=== PATIENT | female | born 1980 | race Caucasian/White ===

== ENCOUNTER 2024-02-20 12:50 | Emergency (ER) | payer OTHER, SELFPAY ==
[2024-02-20 13:00] VITALS: BP 128/80; PULSE 99; RESP 20; TEMP 36.8; O2SAT 100; BMI 32.9
[2024-02-20 13:45] LABS: Influenza Virus A Antigen Negative; Influenza Virus B Antigen Negative; Internal Control Within Normal Limits; SARS-CoV-2 Ag NEGATIVE (NEGATIVE); Strep A Antigen Screen Positive
--- NOTE | 2024-02-20 13:55 | ED.URI1 ---
HPI - URI/Sore Throat General Chief Complaint: Upper Respiratory Infection Stated Complaint: FLU LIKE SYMPTOMS Time Seen by Provider: 02/20/24 13:13 Source: patient Limitations: no limitations History of Present Illness HPI Narrative: Patient is a 43-year-old female who presents to the emergency department for 2-day history of sore throat, hoarse voice, fevers, body aches, cough and congestion. She is not concerned for . No medications taken prior to arrival, she arrives afebrile. She has not had any vomiting or diarrhea. Her daughter is also being evaluated for the same. Related Data Previous Rx's ?Medication ?Instructions ?Recorded amoxicillin 500 mg capsule 500 mg PO TID 10 days #30 caps 02/20/24 ccbxhjsxfwzratm-lfurdjvuakbefns-SB 10 ml PO Q6H PRN cold symptoms 02/20/24 2 mg-30 mg-10 mg/5 mL oral syrup #200 mL (Bromfed DM) ondansetron 4 mg disintegrating 4 mg PO Q6H PRN nausea and 02/20/24 tablet vomiting #12 tabs Allergies Allergy/AdvReac Type Severity Reaction Status Date / Time No Known Drug Allergies Allergy Verified 02/20/24 12:59 Review of Systems ROS Constitutional Reports: fever Ears, nose, mouth, and throat Reports: throat pain and nasal congestion Cardiovascular Denies: chest pain Respiratory Reports: cough; Denies: shortness of breath Gastrointestinal Denies: nausea, vomiting or diarrhea Integumentary/Breast Denies: rash Neurological Reports: headache Exam Narrative Exam Narrative: Gen.: Awake, alert, in no distress Head: Normocephalic, atraumatic ENT: Moist mucous membranes, No pharyngeal erythema with uvula midline and airway widely open and patent. Normal clear speech. Bilateral TMs clear Respiratory: No respiratory distress, lungs clear bilaterally Cardio: Regular rate and rhythm Extremities: Moves extremities equally Psych: Normal mood and affect Neuro: No focal neuro deficit Skin: Warm, dry, intact Constitutional Vital Signs, click to edit/add: Last Vital Signs Temp 98.2 F 02/20/24 13:00 Pulse 99 H 02/20/24 13:00 Resp 20 02/20/24 13:00 BP 128/80 02/20/24 13:00 Pulse Ox 98 02/20/24 14:21 O2 Del Method Room Air 02/20/24 14:21 Course Vital Signs Vital signs: Vital Signs Temperature 98.2 F 02/20/24 13:00 Pulse Rate 99 H 02/20/24 13:00 Respiratory Rate 20 02/20/24 13:00 Blood Pressure 128/80 02/20/24 13:00 Pulse Oximetry 100 02/20/24 13:00 Oxygen Delivery Method Room Air 02/20/24 13:00 Temperature 98.2 F 02/20/24 13:00 Pulse Rate 99 H 02/20/24 13:00 Respiratory Rate 20 02/20/24 13:00 Blood Pressure 128/80 02/20/24 13:00 Pulse Oximetry 98 02/20/24 14:21 Oxygen Delivery Method Room Air 02/20/24 14:21 MDM - URI/Sore Throat MDM Narrative Medical decision making narrative: Patient is positive for strep, her daughter is positive for influenza A so she was counseled that she likely has both infections. Amoxicillin, Bromfed-DM and Zofran given for home. Follow-up PCP and return to the ER if symptoms change or worsen Medical Records Attestation: I reviewed the patient's medical records. Lab Data Attestation: I reviewed the patient's lab results. Labs: Lab Results 02/20/24 Range/Units 13:10 Influenza Type A Ag Negative Influenza Type B Ag Negative SARS-CoV-2 Ag (CV2AG) Negative (NEGATIVE) Streptococcus Screen Positive A Discharge Plan Discharge Stand Alone Forms: Portal Instructions Chief Complaint: Upper Respiratory Infection Clinical Impression: Acute streptococcal pharyngitis Patient Disposition: Home, Self-Care Time of Disposition Decision: 13:53 Condition: Good Mode of Transportation: Private Vehicle Prescriptions / Home Meds: New amoxicillin 500 mg capsule 500 mg PO TID 10 Days Qty: 30 0RF erlvfrrcwdnzrwp-xyqxndjdw-JX [Bromfed DM] 2-30-10 mg/5 mL syrup 10 ml PO Q6H PRN (Reason: cold symptoms) Qty: 200 0RF ondansetron 4 mg tablet,disintegrating 4 mg PO Q6H PRN (Reason: nausea and vomiting) Qty: 12 0RF Print Language: Hungarian Instructions: Strep Throat (ED) Referrals: [facility] [Primary Care Provider] - 1 week Discharge Date/Time: 02/20/24 14:23
[2024-02-20 14:21] VITALS: O2SAT 98
--- NOTE | 2024-02-20 14:21 | PC.NURSE ---
swabs were obtained upon arrival
== END 2024-02-20 14:23 | disposition home or self-care (01) ==
PROVIDERS: Physician Assistant; Emergency Provider Emergency Medicine Emergency Medical Services
DX: J02.0 Streptococcal pharyngitis (principal); Z20.822 Contact with and (suspected) exposure to COVID-19
CPT/HCPCS: 87804; 87811; 87880; 99283

== ENCOUNTER 2025-06-06 14:17 | Emergency (ER) | payer OTHER, SELFPAY ==
[2025-06-06 14:28] VITALS: BP 122/83; PULSE 88; TEMP 36.8; O2SAT 98; BMI 35.0
--- NOTE | 2025-06-06 14:35 | XR_ITS ---
The [place] [address] Patient Name: YENY AVILES MRN: [id number] date: 1980 Sex: F Assigned Patient Location: ER Current Patient Location: ER Accession/Order Number: [id number] Exam Date: 06/06/2025 15:23 Report Date: 06/06/2025 15:27 At the request of: SCOTT MCBRIDE MD Procedure: XR ankle LT min 3V XR foot LT min 3V, XR ankle LT min 3V 06/06/2025 2:59 PM SIGNS AND SYMPTOMS: Left ankle pain and left foot pain, twisting injury to left ankle PROTOCOL: Frontal, lateral, and oblique radiographs of the left foot and left ankle COMPARISON: None FINDINGS: Left foot: There is an os navicularis along the medial margin of the midfoot which is a normal variant. There is a minimally displaced fracture along the anterior and dorsal surface of the navicular. No additional fractures are noted. The joint spaces are preserved. Left ankle: The ankle mortise is preserved. There is a minimally displaced fracture of the navicular. No additional fractures are noted. There is mild nonspecific soft tissue swelling diffusely. XR/XR foot LT min 3V IMPRESSION: Left foot: There is a minimally displaced fracture along the anterior and dorsal surface of the navicular. Left ankle: There is a minimally displaced fracture along the anterior and dorsal surface of the navicular. Impression dictated by: Ranjan Newby M.D. 06/06/2025 3:27 PM Dictation Location: [place] [address] Electronically authenticated by: [id number] Y Date: 06/06/2025 15:27
--- NOTE | 2025-06-06 14:35 | XR_ITS ---
The [place] [address] Patient Name: YENY AVILES MRN: [id number] date: 1980 Sex: F Assigned Patient Location: ER Current Patient Location: ER Accession/Order Number: [id number] Exam Date: 06/06/2025 15:23 Report Date: 06/06/2025 15:27 At the request of: SCOTT MCBRIDE MD Procedure: XR ankle LT min 3V XR foot LT min 3V, XR ankle LT min 3V 06/06/2025 2:59 PM SIGNS AND SYMPTOMS: Left ankle pain and left foot pain, twisting injury to left ankle PROTOCOL: Frontal, lateral, and oblique radiographs of the left foot and left ankle COMPARISON: None FINDINGS: Left foot: There is an os navicularis along the medial margin of the midfoot which is a normal variant. There is a minimally displaced fracture along the anterior and dorsal surface of the navicular. No additional fractures are noted. The joint spaces are preserved. Left ankle: The ankle mortise is preserved. There is a minimally displaced fracture of the navicular. No additional fractures are noted. There is mild nonspecific soft tissue swelling diffusely. XR/XR ankle LT min 3V IMPRESSION: Left foot: There is a minimally displaced fracture along the anterior and dorsal surface of the navicular. Left ankle: There is a minimally displaced fracture along the anterior and dorsal surface of the navicular. Impression dictated by: Ranjan Newby M.D. 06/06/2025 3:27 PM Dictation Location: [place] [address] Electronically authenticated by: [id number] Y Date: 06/06/2025 15:27
--- NOTE | 2025-06-06 14:35 | PC.NURSE ---
left ankle swelling to outside ankle. foot placed on pillows and ice pack in place
[2025-06-06] MEDS: KETOROLAC TROMETHAMINE 60 MG/2 ML VIAL IM (14:44)
--- NOTE | 2025-06-06 15:48 | CT_ITS ---
The [address] [address] Patient Name: YENY AVILES MRN: [id number] date: 1980 Sex: F Assigned Patient Location: ER Current Patient Location: ER Accession/Order Number: [id number] Exam Date: 06/06/2025 16:53 Report Date: 06/06/2025 16:57 At the request of: SCOTT MCBRIDE MD Procedure: CT foot LT wo con CT foot LT wo con 06/06/2025 4:23 PM SIGNS AND SYMPTOMS: ^ankle and foot pain , navicular fx TECHNIQUE: Multidetector CT axial slices of the left foot without IV contrast. Multiplanar reformats were performed and viewed on a separate workstation and reviewed to further define anatomy and possible pathology. CT was performed with one or more of the following dose reduction techniques: Automated exposure control, adjustment of the mA and/or kV according to patient size, or use of iterative reconstruction technique. COMPARISON: Radiographs from the same date. FINDINGS: There is a minimally displaced fracture along the anterior and volar surface of the navicular similar to that seen on radiographs. There is mild accompanying soft tissue swelling. Minimally displaced fractures are also noted along the anterior process of the calcaneus and along the lateral margin of the lateral cuneiform. The metatarsals are intact. The talus is intact. The medial and lateral malleolus are intact. There is a small os navicularis along the lateral margin of the midfoot which is a normal variant. CT/CT foot LT wo con IMPRESSION: There is a minimally displaced fracture along the anterior and volar surface of the navicular similar to that seen on radiographs. There is mild accompanying soft tissue swelling. Minimally displaced fractures are also noted along the anterior process of the calcaneus and along the lateral margin of the lateral cuneiform. Impression dictated by: Ranjan Newby M.D. 06/06/2025 4:57 PM Dictation Location: [place] [address] Electronically authenticated by: [id number] Y Date: 06/06/2025 16:57
--- NOTE | 2025-06-07 07:34 | ED_ITS ---
HPI HPI - Extremity Injury (Lower) General Chief Complaint: Extremity Injury, Lower Stated Complaint: left foot pain Time Seen by Provider: 06/06/25 14:29 Source: patient Mode of arrival: Wheelchair History of Present Illness HPI Narrative: The patient is complaining of severe left ankle and foot pain that started after she fell while going downstairs after missing the last step, patient denies any other complaint but she mentioned that she felt the pop in her foot when she fell down There is no obvious deformity but there is edema of the left foot Related Data Previous Rx's ?Medication ?Instructions ?Recorded amoxicillin 500 mg capsule 500 mg PO TID 10 days #30 c aps 02/20/24 exqnbkoeqqwovti-uvdwnsvpuivwvxq-YR 10 ml PO Q6H PRN co ld symptoms 02/20/24 2 mg-30 mg-10 mg/5 mL oral syrup #200 mL (Bromfed DM) ondansetron 4 mg disintegrating 4 mg PO Q6H PRN nausea and 02/20/24 tablet vomiting #12 tabs acetaminophen 650 mg 650 mg PO Q8H PRN pain #20 t abs 06/06/25 tablet,extended release (Tylenol 8 Hour) diclofenac sodium 75 mg 75 mg PO BID PRN pain #20 ta bs 06/06/25 tablet,delayed release tramadol 50 mg tablet 50 mg PO BID PRN pain #6 tab s 06/06/25 Allergies Allergy/AdvReac Type Severity Reaction Status Date / Time No Known Drug Allergies Allergy Verified 02/20/24 12:59 Opioid HPI Opioid Management Most Recent Pain and Opioid Data: Last Pain Scale 4 06/06/25, 15:00 Last ED Pain Assessment 06/06/25, 15:00 Last MAR Pain Assessment 06/06/25, 14:44 Review of Systems ROS Status of ROS 10 or more systems reviewed and unremark able except as noted in history and below PFSH PFSH Social History Little interest or pleasure in doing things: not at all Feeling down, depressed, or hopeless: not at all Exam Narrative Exam Narrative: Exam Narrative: Nurses notes and vital signs reviewed and patient is not hypoxic. General: Well-appearing and in no apparent distress. Skin: Warm, dry, no pallor noted. Left lower extremity exam: The patient have tenderness upon palpation of the anterior of the foot as well as the ankle there is significant swelling there is no vascular injury detected and the patient have normal capillary fill and there is still full range of movement No apparent deformity and no other injury detected on exam Constitutional Vital Signs, click to edit/add: Last Vital Signs Temp 98.2 F 06/06/25 14:28 Pulse 88 06/06/25 14:28 Resp 18 06/06/25 14:28 BP 122/83 06/06/25 14:28 Pulse Ox 98 06/06/25 14:28 O2 Del Method Room Air 06/06/25 14:28 Course Vital Signs Vital signs: Vital Signs Temperature 98.2 F 06/06/25 14:28 Pulse Rate 88 06/06/25 14:28 Respiratory Rate 18 06/06/25 14:28 Blood Pressure 122/83 06/06/25 14:28 Pulse Oximetry 98 06/06/25 14:28 Oxygen Delivery Method Room Air 06/06/25 14:28 Temperature 98.2 F 06/06/25 14:28 Pulse Rate 88 06/06/25 14:28 Respiratory Rate 18 06/06/25 14:28 Blood Pressure 122/83 06/06/25 14:28 Pulse Oximetry 98 06/06/25 14:28 Oxygen Delivery Method Room Air 06/06/25 14:28 MDM - Extremity Injury (Lower) MDM Narrative Medical decision making narrative: Medical decision making narrative: X-ray of the patient's left foot and ankle showed that the patient had navicular fracture that was discussed with Dr. Allred and he recommended the patient to get a CT Which confirmed that the patient have a fracture of the navicular as well as possibly the calcaneus Patient was provided with crutches and she is stable placed in a cam boot in addition to provided with crutches nonweightbearing and follow-up with Dr. Allred on Sunday The patient also provided with Tylenol and Voltaren and tramadol for pain Patient initially did not want any pain medication but she was provided with only few tablets of pain medication in case needed The patient is to follow up with primary care physician in next 2-3 days or to return to the emergency department should any of the signs or symptoms worsen or new symptoms develop. The patient agrees with the following Diagnosis and Treatment plan and the patient will be discharged home Discharge Plan Discharge Chief Complaint: Extremity Injury, Lower Clinical Impression: Foot fracture Patient Disposition: Home, Self-Care Time of Disposition Decision: 17:13 Condition: Good Prescriptions / Home Meds: New tramadol 50 mg tablet 50 mg PO BID PRN (Reason: pain) Qty: 6 0RF acetaminophen [Tylenol 8 Hour] 650 mg tablet extended release 650 mg PO Q8H PRN (Reason: pain) Qty: 20 0RF diclofenac sodium 75 mg tablet,delayed release (DR/EC) 75 mg PO BID PRN (Reason: pain) Qty: 20 0RF No Action amoxicillin 500 mg capsule 500 mg PO TID 10 Days Qty: 30 0RF bgntkotonxrkhrz-iingwgqxb-NG [Bromfed DM] 2-30-10 mg/5 mL syrup 10 ml PO Q6H PRN (Reason: cold symptoms) Qty: 200 0RF ondansetron 4 mg tablet,disintegrating 4 mg PO Q6H PRN (Reason: nausea and vomiting) Qty: 12 0RF Print Language: Samoan Instructions: Crutch Instructions (ED), Foot Fracture in Adults (ED) Referrals: [facility] [Primary Care Provider] - 1 week Chato Allred MD [Physician, Orthopedics] - 06/08/25 Discharge Date/Time: 06/06/25 17:36
== END 2025-06-06 17:36 | disposition home or self-care (01) ==
PROVIDERS: Emergency Provider Emergency Medicine
DX: S92.252A Displaced fracture of navicular [scaphoid] of left foot, initial encounter for closed fracture (principal); S92.022A Displaced fracture of anterior process of left calcaneus, initial encounter for closed fracture; W10.8XXA Fall (on) (from) other stairs and steps, initial encounter; M25.572 Pain in left ankle and joints of left foot; M79.672 Pain in left foot
CPT/HCPCS: 73610; 73630; 73700; 96372; 99285; J1885

== ENCOUNTER 2025-11-15 13:56 | Emergency (ER) | payer OTHER, SELFPAY ==
--- OUTSIDE RECORDS SUMMARY | 2024-06-18 08:30 | XMS_ITS ---
Author Organization [facility] Servic es Address [address] [place] [address] Care Team Providers Care Blueprint Tracer Name Role Phone Kan Romo Primary Care Provider [phone] REASON FOR VISIT recheck Encounters Encounter Location Date Provider Diagnosis [facility] [address] [place] [address] 06/18/2024 Kan Romo Plan Of Treatment No Information Progress Notes * JG AVILESYDOB: 0 (45 yo F)Acc No.[id number]:06/18/2024 Progress Notes Patient: YENY COLBERT Provider:KARTIK FranzOB:1980???Age:43 Y???Sex:FemaleDate:06/18/2024hone:[phone]:[address] [facility] [address] [facility] [place]-[address] Subjective: * Chief Complaints: * R echeck Billing Information: * Procedure Codes: * Electronic signature of Kan Romo MD on 11/15/2025 at 02:30 PM ESTSign off status: Pending * Appointment Provider: Vee Romo MD Date: 0 06/18/2024 Generated for Printing/Faxing/eTransmitting on:?11/15/2025 02:30 PM EST
--- OUTSIDE RECORDS SUMMARY | 2024-06-25 08:30 | XMS_ITS ---
Author Organization [facility] Servic es Address [address] [place] [address] Care Team Providers Care Campground Caretaker Name Role Phone Kan Romo Primary Care Provider [phone] Luba Garibay [phone] REASON FOR VISIT 1 month f/u Encounters Encounter Location Date Provider Diagnosis [place] [address] [place] [address] 06/25/2024 Luba Garibay Plan Of Treatment No Information Progress Notes * ANYI AVILESOB: 0 (45 yo F)Acc No.[id number]:06/25/2024 Behavioral Health Patient: YENY COLBERT :?Luba GaribayDOB:1980???Age:44 Y???Sex:Female Date:06/25/2024hone:[phone]:[facility] [address] [place], [place]-[id number]:Kan Romo Subjective: * Chief Complaints: * 1 month f/u Billing Information: * Procedure Codes: * Electronic signature of SUSSY العلي on 11/15/2025 at 02:30 PM ESTSign off status: Pending * Provider: Lux Garibay Date: 0 06/25/2024 Generated for Printing/Faxing/eTransmitting on:?11/15/2025 02:30 PM EST
--- OUTSIDE RECORDS SUMMARY | 2024-08-05 03:00 | XMS_ITS ---
Author Organization [facility] Servic es Address [address] [place] [address] Care Team Providers Care Facilities Maintenance Engineer Name Role Phone Kan Romo Primary Care Provider REASON FOR VISIT chronic care f/u Encounters Encounter Location Date Provider Diagnosis [facility] [address] [place] [address] 08/05/2024 Kan Romo Plan Of Treatment No Information Progress Notes * ANYI AVILESOB: 0 (45 yo F)Acc No.[id number]:08/05/2024 Progress Notes Patient: YENY COLBERT Provider:KARTIK FranzOB:1980???Age:44 Y???Sex:FemaleDate:4Phone:[phone]:[facility] [address] [facility] H[facility]ITALHW-[address] Subjective: * Chief Complaints: * C hronic care f/u Billing Information: * Procedure Codes: * Electronic signature of Kan Romo MD on 11/15/2025 at 02:30 PM ESTSign off status: Pending * Appointment Provider: Vee Romo MD Date: 0 08/05/2024 Generated for Printing/Faxing/eTransmitting on:?11/15/2025 02:30 PM EST
--- OUTSIDE RECORDS SUMMARY | 2024-09-22 04:00 | XMS_ITS ---
Author Organization [facility] Servic es Address [address] [place] [address] Care Team Providers Care Harbormaster Name Role Phone Kan Romo Primary Care Provider Ranjan Nair [phone] REASON FOR VISIT chronic care f/u Encounters Encounter Location Date Provider Diagnosis [facility] [address] [place] [address] 09/22/2024 Ranjan Nair Plan Of Treatment No Information Progress Notes * ANYI AVILESOB: 0 (45 yo F)Acc No.[id number]:09/22/2024 Progress Notes Patient: YENY COLBERT Provider:?KARTIK RiojasOB:1980???Age:44 Y???Sex:FemaleDate:09/22/2024hone:[phone]:[address] [facility] [address] HEALTHYT-[address]Wtu:Kan Romo Subjective: * Chief Complaints: * C hronic care f/u Billing Information: * Procedure Codes: * Electronic signature of Ranjan Nair MD on 11/15/2025 at 02:30 PM ESTSign off status: Pending * Appointment Provider: Valdo Nair MD Date: 1 Generated for Printing/Faxing/eTransmitting on:?11/15/2025 02:30 PM EST
--- OUTSIDE RECORDS SUMMARY | 2025-09-29 03:41 | XMS_ITS | Continuity of Care Document ---
Author Organization [facility] Address [address] [place] [address] Phone Care Team Providers Care Imaging Services Director Name Role Phone Eric CNP WHDoreen EVANSan Unavailable Unavaila ble Allergies, Adverse Reactions, Alerts Substance Reaction Status Criticality No Known Allergies Active No Inform ation Medications Medication Instructions Dosage Effective Dates (start - stop) Status Comments Adipex-P 37.5 mg tablet take 1 tablet by oral route every day before breakfast - Active gabapentin 400 mg capsule take 1 capsule by oral route 3 times every day 400 MG - Active Problems Condition Type Effective Dates (start - stop) Clini dax Status Comments No Known Problems Procedures Procedure Date PREV VISIT, EST, AGE 40-64 Bp scrn perf rec interval DIAST BP < 80 MM HG SYST BP < 130 MM HG MED LIST DOCD [facility] RVW MEDS BY RX/DR [facility] Tobacco User Not Consuled Depo Provera 1 Ml Depo Provera 1 Ml OFFICE/OUTPATIENT VISIT, EST Depo Provera 1 Ml OFFICE/OUTPATIENT VISIT, EST Depo Provera 1 Ml OFFICE/OUTPATIENT VISIT, EST THER/PROPH/DIAG INJ, SC/IM Depo Provera 1 Ml PREV VISIT, EST, AGE 40-64 THER/PROPH/DIAG INJ, SC/IM Depo Provera 1 Ml OFFICE/OUTPATIENT VISIT, EST Depo Provera 1 Ml OFFICE/OUTPATIENT VISIT, EST Depo Provera 1 Ml OFFICE/OUTPATIENT VISIT, EST OFFICE/OUTPATIENT VISIT, EST IMMUNIZATION ADMIN FLU VAC NO PRSV 4 DANIEL 3 YRS+ Depo Provera 1 Ml THER/PROPH/DIAG INJ, SC/IM OFFICE/OUTPATIENT VISIT, EST URINE TEST Depo Provera 1 Ml THER/PROPH/DIAG INJ, SC/IM ENDOCERV CURETTAGE W/SCOPE Depo Provera 1 Ml OFFICE/OUTPATIENT VISIT, EST THER/PROPH/DIAG INJ, SC/IM PREV VISIT, EST, AGE 40-64 Depo Provera 1 Ml THER/PROPH/DIAG INJ, SC/IM OFFICE/OUTPATIENT VISIT, EST OFFICE/OUTPATIENT VISIT, EST OFFICE/OUTPATIENT VISIT, EST THER/PROPH/DIAG INJ, SC/IM Depo Provera 1 Ml PREV VISIT, EST, AGE 40-64 URINE TEST Depo Provera 1 Ml THER/PROPH/DIAG INJ, SC/IM Office Visit/[facility] OFFICE/OUTPATIENT VISIT, EST Depo Provera 1 Ml OFFICE/OUTPATIENT VISIT, EST THER/PROPH/DIAG INJ, SC/IM OFFICE/OUTPATIENT VISIT, EST Depo Provera 1 Ml OFFICE/OUTPATIENT VISIT, EST THER/PROPH/DIAG INJ, SC/IM Office Visit/[facility] Depo Provera 1 Ml OFFICE/OUTPATIENT VISIT, EST THER/PROPH/DIAG INJ, SC/IM URINE TEST Depo Provera 1 Ml PREV VISIT, EST, AGE 18-39 THER/PROPH/DIAG INJ, SC/IM Office Visit/[facility] OFFICE/OUTPATIENT VISIT, EST OFFICE/OUTPATIENT VISIT, EST OFFICE/OUTPATIENT VISIT, EST URINE TEST PREV VISIT, EST, AGE 18-39 Depo Provera 1 Ml OFFICE/OUTPATIENT VISIT, EST OFFICE/OUTPATIENT VISIT, EST OFFICE/OUTPATIENT VISIT, EST URINALYSIS NONAUTO W/O SCOPE ROUTINE VENIPUNCTURE OFFICE/OUTPATIENT VISIT, EST OFFICE/OUTPATIENT VISIT, EST URINE TEST URINALYSIS NONAUTO W/O SCOPE PREV VISIT, EST, AGE 18-39 PREV VISIT, EST, AGE 18-39 Depo Provera 1 Ml THIN PREP TIS LIQUID-BASED Chlamydia/Neisseria Gonorrhoeae RNA TMA URINE TEST Depo Provera 1 Ml [facility] SPECIMEN HANDLING (GC/CHLAMYDIA) Aug EST FP MEDICAID OFFICE/OUTPATIENT VISIT, EST OFFICE/OUTPATIENT VISIT, EST Thin Prep(R) Imaging System Pap W/Reflex To HR HPV DNA CHLAMYDIA & N GONORRHOEAE DNA, SDA Feb- OFFICE/OUTPATIENT VISIT, EST Medroxyprogesterone Acetate 150 mg injec tion OFFICE/OUTPATIENT VISIT, EST Medroxyprogesterone Acetate 150 mg injec tion BX/CURETT OF CERVIX W/SCOPE BIOPSY OF CERVIX W/SCOPE OFFICE/OUTPATIENT VISIT, EST Medroxyprogesterone Acetate 150 mg injec tion PREV VISIT, EST, AGE 18-39 Medroxyprogesterone Acetate 150 mg injec tion URINE TEST Thin Prep(R) Imaging System Pap W/Reflex To HR HPV DNA OFFICE/OUTPATIENT VISIT, EST Medrxyprogester acetate inj OFFICE/OUTPATIENT VISIT, EST Medrxyprogester acetate inj OFFICE/OUTPATIENT VISIT, EST Medrxyprogester acetate inj [facility] MEDICAID Medrxyprogester acetate inj OFFICE/OUTPATIENT VISIT, EST Medroxyprogesterone Acetate 104 mg injec tion OFFICE/OUTPATIENT VISIT, EST Medroxyprogesterone Acetate 104 mg injec tion OFFICE/OUTPATIENT VISIT, EST Medrxyprogester acetate inj URINE TEST OFFICE/OUTPATIENT VISIT, EST URINE TEST OFFICE/OUTPATIENT VISIT, EST URINE TEST Medrxyprogester acetate inj [facility] MEDICAID SMEAR, WET [place], SALINE/INK SPECIMEN HANDLING URINE TEST Advance Directives Directive Yes / No Effective Date File Name No Information Encounters Encounter Description Practice Location Reason(s) For Visit Diagnoses Date Provider Providers Copied on Encounter [facility], [address] [place] [address], [place], [place], [id number] , [place] tel:[phone] [facility] No Information [facility] Ophelia. [address], [place], [id number], [place]. tel:[phone] PREV VISIT, [facility], AGE 40-64 [facility], [address] [place] [address], [id number] , [place] tel:[phone] [facility] annual exam (chief complaint) Encounter for gynecological examination (general) (routine) without abnormal findingsBody mass index [BMI] 32.0-32.9, adultScreening mammogram for breast cancerMenorrha sarah with regular cycleDepo Provera injectionPregn maría test negativeColon Cancer screeningDysme norrhea 5 [facility] Ophelia. [address], [place], [id number], [place]. tel:[phone] OFFICE/OUTPA TIENT VISIT, [facility], [address] [place] [address], [id number] , [place] tel: [phone] [facility] Depo (chief complaint) Body mass index [BMI] 33.0-33.9, adultEncounter for surveillance of injectable contraceptive 4 [facility] Ophelia. [address], [place], [id number], [place]. tel:[phone] OFFICE/OUTPA TIENT VISIT, [facility], [address] [place] [address], [id number] , [place] tel: [phone] [facility] abnormal pap smear (chief complaint) Body mass index [BMI] 32.0-32.9, adultDepo Provera injectionASCUS on pap smear of cervixHPV high risk 4 [facility] Ophelia. [address], [place], [id number], [place]. tel:[phone] OFFICE/OUTPA TIENT VISIT, [facility], [address] [place] [address], [id number] , [place] tel:[phone] [facility] contraception (chief complaint) Body mass index [BMI] 34.0-34.9, adultDepo Provera injectionLipom a of right lower extremity 4 [facility] Ophelia. [address], [place], [id number], [place]. tel:[phone] PREV VISIT, [facility], AGE 40-64 [facility], [address] [place] [address], [id number] , [place] tel: [phone] [facility] annual exam (chief complaint)cont raception (chief complaint) Encounter for gynecological examination (general) (routine) without abnormal findingsBreast cancer screening by mammogramBody mass index [BMI] 34.0-34.9, adultDepo Provera injection- STD High risk heterosexual behaviorScreen for STD (sexually transmitted disease) 3 [facility] Ophelia. [address] [place] [address], [id number], [place]. tel:[phone] OFFICE/OUTPA TIENT VISIT, [facility], [address] [place] [address], [id number] , [place] tel:[phone] [facility] contraception (chief complaint) Depo Provera injection 3 [facility] Op[facility]ia. [address], [place], [id number], [place]. tel:[phone] OFFICE/OUTPA TIENT VISIT, [facility], [address] [place] [address], [id number] , [place] tel:[phone] [facility] contraception (chief complaint) Body mass index [BMI] 32.0-32.9, adultDepo Provera injection 3 [facility] Ophelia. [address] [place] [address], [id number], [place]. tel:[phone] OFFICE/OUTPA TIENT VISIT, [facility], [address] [place] [address], [id number] , [place] tel: [phone] [facility] contraception (chief complaint) Body mass index [BMI] 32.0-32.9, adultDepo Provera injection 3 [facility] Ophelia. [address], [place], [id number], [place]. tel:[phone] OFFICE/OUTPA TIENT VISIT, [facility], [address], [place], [id number] , [place] tel:[phone] [facility] contraception (chief complaint) Depo Provera injection 3 [facility] Ophelia. [address], [place], [id number], [place]. tel:[phone] OFFICE/OUTPA TIENT VISIT, [facility], [address] [place] [address], [id number] , [place] tel:[phone] [facility] abnormal pap smear (chief complaint) Chlamydia infectionPap smear of cervix shows high risk HPV presentBody mass index [BMI] 35.0-35.9, adultScreen for STD (sexually transmitted disease)- STD liefstyle codeDepo Provera injectionEncou nter for test, result negative 2 [facility] [address] [place] [address], [id number], [place]. tel:[phone] [facility], [address] [place] [address], [id number] , [place] tel:[phone] [facility] Colpo (chief complaint)abno rmal pap smear (chief complaint)WENDY (chief complaint) Body mass index [BMI] 34.0-34.9, adultPap smear of cervix shows high risk HPV presentTrichom onal vaginitis 2 Deontei DO Deangelo. [address], [place], [id number], [place]. tel:[phone] OFFICE/OUTPA TIENT VISIT, [facility], [address] [place] [address], [id number] , [place] tel:[phone] [facility] contraception (chief complaint) Body mass index [BMI] 34.0-34.9, adultDepo Provera injection 2 [facility]ia. [address], [place], [id number], [place]. tel:[phone] PREV VISIT, [facility], AGE 40-64 [facility], [address] [place] [address], [id number] , [place] tel: [phone] [facility] annual exam (chief complaint) Encounter for gynecological examination (general) (routine) without abnormal findingsScreen ing mammogram, encounter for- STD liefstyle codeScreen for STD (sexually transmitted disease)Depo Provera injectionBody mass index [BMI] 34.0-34.9, adult 2 [facility] Op[facility]ia. [address] [place] [address], [id number], [place]. tel:[phone] OFFICE/OUTPA TIENT VISIT, [facility], [address] [place] [address], [id number] , [place] tel: [phone] [facility] Review labs and x-rays (chief complaint)Musc uloskeletal pain (chief complaint) Body mass index [BMI] 35.0-35.9, adultChronic bilateral low back pain with left-sided sciaticaOther chronic pain 1 Pavlock DO Max. [address] [place] [address], [id number], [place]. tel:[phone] OFFICE/OUTPA TIENT VISIT, [facility], [address] [place] [address], [id number] , [place] tel: [phone] [facility] Weight gain/thyroid (chief complaint) Body mass index [BMI] 36.0-36.9, adultLeft hip painBilateral anterior knee painPain in left kneeParesthesi a of hand, bilateral 1 Pavlock DO Max. [address] [place] [address], [id number], [place]. tel:[phone] OFFICE/OUTPA TIENT VISIT, [facility], [address] [place] [address], [id number] , [place] tel: [phone] [facility] contraception (chief complaint) Depo Provera injectionBody mass index [BMI] 36.0-36.9, adult 1 [facility] Op[facility]ia. [address], [place], [id number], [place]. tel:[phone] PREV VISIT, EST, AGE 40-64 [facility], [address], [place], [id number] , [place] tel: [phone] [facility] annual exam (chief complaint) Encounter for gynecological examination (general) (routine) without abnormal findingsEncoun ter for testDepo Provera injectionEncou nter for screening mammogram for Ca of breastBody mass index [BMI] 35.0-35.9, adultScreen for STD (sexually transmitted disease)- STD liefstyle code 0 [facility] Ophelia. [address], [place], [id number], [place]. tel:[phone] OFFICE/OUTPA TIENT VISIT, [facility], [address], [place], [id number] , [place] tel: [phone] [facility] Sinus symptoms (acute) (chief complaint) Acute non-recurrent maxillary sinusitis 0 Namrata Cantrell. [address], [place], [id number], [place]. tel:[phone] OFFICE/OUTPA TIENT VISIT, EST [facility], [address], [place], [id number] , [place] tel: [phone] [facility] Body mass index (BMI) 34.0-34.9, adultDepo Provera injection 0 [facility] Op[facility]ia. [address], [place], [id number], [place]. tel:[phone] OFFICE/OUTPA TIENT VISIT, [facility], [address] [place] [address], [id number] , [place] tel: [phone] [facility] Tele-Health (chief complaint) BV (bacterial vaginosis)Othe r specified bacterial agents as the cause of diseases classified elsewhere 0 [facility]. [address] [place] [address], [id number], [place]. tel:[phone] OFFICE/OUTPA TIENT VISIT, [facility], [address] [place] [address], [id number] , [place] tel: [phone] [facility] contraception (chief complaint) Body mass index (BMI) 32.0-32.9, adultDepo Provera injection 0 [facility]. [address] [place] [address], [id number], [place]. tel:[phone] OFFICE/OUTPA TIENT VISIT, [facility], [address] [place] [address], [id number] , [place] tel: [phone] [facility] contraception (chief complaint)Test of cure (chief complaint) Body mass index (BMI) 30.0-30.9, adult- STD liefstyle codeScreen for STD (sexually transmitted disease)Depo Provera injectionChlam ydia infection- HIV 9 [facility]. [address] [place] [address], [id number], [place]. 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 [address] [place] [address], [id number], [place]. tel:[phone] OFFICE/OUTPA TIENT VISIT, [facility], [address], [place], [id number] , [place] tel: [phone] [facility] est care (chief complaint) Bipolar 1 disorder 9 Pavlock DO Redfield. [address], [place], [id number], [place]. tel:[phone] OFFICE/OUTPA TIENT VISIT, [facility], [address], [place], [id number] , [place] tel: [phone] [facility] contraception (chief complaint) Depo Provera injectionBody mass index (BMI) 30.0-30.9, adult 0- 8 [facility] Ophelia. [address], [place], [id number], [place]. tel:[phone] OFFICE/OUTPA TIENT VISIT, [facility], [address] [place] [address], [id number] , [place] tel: [phone] [facility] contraception (chief complaint) Depo Provera injection 8 [facility]. [address], [place], [id number], [place]. 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 [address] [place] [address], [id number], [place]. tel:[phone] OFFICE/OUTPA TIENT VISIT, [facility], [address], [place], [id number] , [place] tel: [phone] [facility] oral naltrexone concerns (chief complaint) Opioid dependence 7 Reyes Chavez. [address], [place], [id number], [place]. tel:[phone] [facility], [address], [place], [id number] , [place] tel: [phone] [facility] Vivitrol (chief complaint) Opioid dependenceAnxi ety 2-201 7 Reyes Chavez. [address], [place], [id number], [place]. tel:[phone] OFFICE/OUTPA TIENT VISIT, [facility], [address] [place] [address], [id number] , [place] tel: [phone] [facility] Interview (chief complaint) 17 weeks gestation of pregnancyDrug use complicating , second trimesterEncnt r screen for infections w sexl mode of transmissEncou nter for screening for oth infec/parastc diseasesEncntr for real estate leasing manager exam (general) (routine) w/o abn findings -201 7 Visci DO Deangelo. [address], [place], [id number], [place]. [phone] OFFICE/OUTPA TIENT VISIT, [facility], [address], [place], [id number] , [place] tel: [phone] [facility] test (chief complaint) Encounter for test, result positiveEncoun ter for supervision of other normal , 1st trimester 201 6 Eric [facility] Ophelia. [address], [place], [id number], [place]. tel:[phone] PREV VISIT, EST, AGE 18-39 [facility], [address], [place], [id number] , [place] tel:[phone] [facility] annual exam (chief complaint) Routine gynecological examinationOth er specified contraceptive management Jan-0 4-201 5 Eric [facility] Ophelia. [address], [place], [id number], [place]. tel:[phone] [facility], [address], [place], [id number] , [place] tel: [phone] [facility] PAP - repeat (chief complaint) Surveillance of other contraceptive methodOther specified contraceptive managementGene ral counseling on initiation of other contraceptive measuresGyneco logical ExaminationVag initis 0- 3 Howard Ribeiro. [address] [place], [address], [place]. tel:[phone] OFFICE/OUTPA TIENT VISIT, [facility], [address], [place], [id number] , [place] tel: [phone] [facility] update (chief complaint) Gynecological ExaminationGen eral counseling on initiation of other contraceptive measures 3 Gladis Lopez. [address], [place], [id number], [place]. tel:[phone] OFFICE/OUTPA TIENT VISIT, [facility], [address], [place], [id number] , [place] tel: [phone] [facility] No Information 2 Gladis Lopez. [address], [place], [id number], [place]. tel:[phone] OFFICE/OUTPA TIENT VISIT, [facility], [address], [place], [id number] , [place] tel: [phone] [facility] No Information 2 Gladis Lopez. [address], [place], [id number], [place]. tel:[phone] [facility], [address], [place], [id number] , [place] tel: [phone] [facility] No Information 2 Latricia Stark. [address], [place], [id number], [place]. tel:[phone] OFFICE/OUTPA TIENT VISIT, [facility], [address], [place], [id number] , [place] tel: [phone] [facility] No Information 0 3-201 2 Lamp Jessica. [address], [place], [id number], [place]. tel:[phone] PREV VISIT, [facility], AGE 18-39 [facility], [address], [place], [id number] , [place] tel: [phone] [facility] No Information 4-201 2 Lamp Jessica. [address], [place], [id number], [place]. tel: [phone] OFFICE/OUTPA TIENT VISIT, [facility], [address], [place], [id number] , [place] tel: [phone] [facility] No Information 0 7-201 1 Lamp Jessica. [address], [place], [id number], [place]. tel:[phone] OFFICE/OUTPA TIENT VISIT, [facility], [address], [place], [id number] , [place] tel: [phone] [facility] No Information 4201 1 Lamp Jessica. [address], [place], [id number], [place]. tel:[phone] OFFICE/OUTPA TIENT VISIT, [facility], [address], [place], [id number] , [place] tel: [phone] [facility] No Information 0-201 1 Lamp Jessica. [address], [place], [id number], [place]. tel:[phone] [facility], [address], [place], [id number] , [place] tel: [phone] [facility] No Information 1-201 0 Lamp Jessica. [address], [place], [id number], [place]. tel:[phone] OFFICE/OUTPA TIENT VISIT, [facility], [address], [place], [id number] , [place] tel: [phone] [facility] No Information 0 Visci DO Deangelo. [address], [place], [id number], [place]. tel:[phone] OFFICE/OUTPA TIENT VISIT, [facility], [address], [place], [id number] , [place] tel: [phone] [facility] No Information 0 Lamp Jessica. [address], [place], [id number], [place]. tel:[phone] OFFICE/OUTPA TIENT VISIT, [facility], [address], [place], [id number] , [place] tel: [phone] [facility] No Information 0 Visci DO Deangelo. [address], [place], [id number], [place]. tel:[phone] OFFICE/OUTPA TIENT VISIT, [facility], [address], [place], [id number] , [place] tel: [phone] [facility] No Information 0 Visci DO Deangelo. [address], [place], [id number], [place]. tel:[phone] OFFICE/OUTPA TIENT VISIT, [facility], [address], [place], [id number] , [place] tel: [phone] [facility] No Information 9 Visci DO Deangelo. [address], [place], [id number], [place]. tel:[phone] [facility], [address], [place], [id number] , [place] tel: [phone] [facility] No Information 9 No Information Family History Family Member Type Diagnosis Age At Onset Mother Problem (finding) Alive and well Father Problem (finding) Alive and well Brother Problem (finding) learning disability Brother Problem attention deficit hyperactiv ity disorder Father Problem (finding) Lymphoma Brother Problem (finding) Alive and well Immunizations Vaccine Date Status Comments Flulaval/ Fluarix administered Source: Ne w Immunization Record Flulaval/ Fluarix refused Source: Ne w Immunization Record Hep A (adult) refused Source: New Im munization Record Payers Payer name Insurance type Covered democrat ID Authoriza tion(s) [employer] Medicaid CFC [id number] Medicaid [facility] [id number] [facility] [id number] Medicaid [facility] [id number] Medicaid [facility] [id number] Social History Type Description Quantity Date Captured Comments Alcohol Use Details Unknown Caffeine Use Details Unknown Tobacco Use Status Smoking Status No Information Sex Female Sexual Orientation Straight or heterosexual Gender Identity Female Chief Complaint And Reason For Visit No Information Reason For Referral Reason For Referral No Information Plan Of Treatment Date Type Action Status Goal Hep A. Due on du e Goal HPV. Due on due Goal Tdap Vaccine. Due on 2024 due Goal Tdap. Due on due Goal Mammogram. Due on 0 due Goal Lipid panel. Due on 025 due Goal PRAPARE ASSESSMENT. Due on N due Goal Influenza vaccine. Due on No due Goal Depression screening. Due on due Goal Unhealthy drug use screening . Due on due Goal Influenza vaccine. Due on Oc due Goal PRAPARE ASSESSMENT. Due on O due Goal Tdap Vaccine. Due on 2024 due Goal Tdap. Due on due Goal HPV. Due on due Goal Unhealthy drug use screening . Due on due Goal Lipid panel. Due on due Goal Mammogram. Due on 0 due Goal Depression screening. Due on due Goal Tobacco cessation counseling completed Goal Hep A. Due on du e Goal Lipid panel. Due on due Goal Mammogram. Due on 0 due Goal Influenza vaccine. Due on due Goal Unhealthy drug use screening . Due on due Goal Depression screening. Due on due Goal Tdap. Due on due Goal RLP. Due on due Goal Tdap Vaccine. Due on 2023 due Goal PRAPARE ASSESSMENT. Due on due Goal HPV. Due on due Goal PRAPARE ASSESSMENT. Due on due Goal Depression screening. Due on due Goal Unhealthy drug use screening . Due on due Goal Lipid panel. Due on due Goal Tdap. Due on due Goal Influenza vaccine. Due on due Goal Mammogram. Due on 0 due Goal RLP. Due on due Goal HPV. Due on due Goal Tdap Vaccine. Due on 2023 due Goal RLP. Due on due Goal Lipid panel. Due on 024 due Goal Tdap Vaccine. Due on 2023 due Goal PRAPARE ASSESSMENT. Due on due Goal Influenza vaccine. Due on due Goal Tdap. Due on due Goal Depression screening. Due on due Goal Unhealthy drug use screening . Due on due Goal Mammogram. Due on 0 due Goal HPV. Due on due Goal Dietary management education , guidance, and counseling completed Goal Tobacco cessation counseling completed Goal Influenza vaccine. Due on due Goal Unhealthy drug use screening . Due on due Goal Tdap. Due on due Goal Depression screening. Due on due Goal Hep A. Due on du e Goal PRAPARE ASSESSMENT. Due on due Goal Mammogram. Due on 0 due Goal RLP. Due on due Goal Lipid panel. Due on 023 due Goal HPV. Due on due Goal Tdap Vaccine. Due on 2022 due Goal Dietary management education , guidance, and counseling completed Goal Tobacco cessation counseling completed Goal RLP. Due on due Goal Hep A. Due on du e Goal Influenza vaccine. Due on due Goal Mammogram. Due on due Goal Lipid panel. Due on due Goal Tdap. Due on due Goal PRAPARE ASSESSMENT. Due on S due Goal Depression screening. Due on due Goal Tdap Vaccine. Due on 2022 due Goal Tobacco cessation counseling completed Goal Tdap Vaccine. Due on 2022 due Goal Tdap. Due on due Goal RLP. Due on due Goal PRAPARE ASSESSMENT. Due on J due Goal Depression screening. Due on due Goal Influenza vaccine. Due on due Goal Lipid panel. Due on 023 due Goal Dietary management education , guidance, and counseling completed Goal Tobacco cessation counseling completed Goal RLP. Due on due Goal PRAPARE ASSESSMENT. Due on A due Goal Tdap Vaccine. Due on 2022 due Goal Influenza vaccine. Due on Ap due Goal Depression screening. Due on due Goal Lipid panel. Due on due Goal Tdap. Due on due Goal Tobacco cessation counseling completed Goal Dietary management education , guidance, and counseling completed Goal PRAPARE ASSESSMENT. Due on due Goal RLP. Due on due Goal Influenza vaccine. Due on Ja due Goal Tdap. Due on due Goal Depression screening. Due on due Goal Tdap Vaccine. Due on 2022 due Goal Lipid panel. Due on due Goal Tobacco cessation counseling completed Goal Depression screening. Due on due Goal Tdap. Due on due Goal RLP. Due on due Goal PRAPARE ASSESSMENT. Due on N due Goal Influenza vaccine. Due on due Goal Lipid panel. Due on 022 due Goal Tobacco cessation counseling completed Goal Dietary management education , guidance, and counseling completed Goal Depression screening. Due on due Goal RLP. Due on due Goal Influenza vaccine. Due on due Goal Tdap. Due on due Goal Dietary management education , guidance, and counseling completed Goal Tobacco cessation counseling completed Goal Tdap. Due on due Goal Influenza vaccine. Due on due Goal Depression screening. Due on due Goal RLP. Due on due Goal Dietary management education , guidance, and counseling completed Goal Tobacco cessation counseling completed Goal Depression screening. Due on due Goal Tdap. Due on due Goal RLP. Due on due Goal Influenza vaccine. Due on due Goal Dietary management education , guidance, and counseling completed Goal Tobacco cessation counseling completed Goal Dietary management education , guidance, and counseling completed Goal Tdap. Due on due Goal Depression screening. Due on due Goal RLP. Due on due Goal Influenza vaccine. Due on due Goal Dietary management education , guidance, and counseling completed Goal Tobacco cessation counseling completed Goal Influenza vaccine. Due on due Goal Depression screening. Due on due Goal Tdap. Due on due Goal RLP. Due on due Goal Dietary management education , guidance, and counseling completed Goal Tobacco cessation counseling completed Goal RLP. Due on due Goal Depression screening. Due on due Goal Influenza vaccine. Due on due Goal Tdap. Due on due Goal Dietary management education , guidance, and counseling completed Goal Influenza vaccine. Due on Oc due Goal Tdap. Due on due Goal RLP. Due on due Goal Depression screening. Due on due Goal Tobacco cessation counseling completed Goal Dietary management education , guidance, and counseling completed Goal RLP. Due on due Goal Depression screening. Due on due Goal Influenza vaccine. Due on Au due Goal Tdap. Due on due Goal Influenza vaccine. Due on Ma due Goal RLP. Due on due Goal Tdap. Due on due Goal Depression screening. Due on due Goal Tobacco cessation counseling completed Goal Dietary management education , guidance, and counseling completed Goal Depression screening. Due on due Goal CANDY BAR ATTENDANT exam. Due on due Goal Influenza vaccine. Due on due Goal RLP. Due on due Goal Tdap. Due on due Goal Depression screening. Due on due Goal Tdap. Due on due Goal CANDY BAR ATTENDANT exam. Due on due Goal Influenza vaccine. Due on due Goal RLP. Due on due Goal Tobacco cessation counseling completed Goal Dietary management education , guidance, and counseling completed Goal Tdap. Due on due Goal RLP. Due on due Goal CANDY BAR ATTENDANT exam. Due on due Goal Depression screening. Due on due Goal Influenza vaccine. Due on due Goal Tobacco cessation counseling completed Goal Dietary management education , guidance, and counseling completed Goal Tdap. Due on due Goal Depression screening. Due on due Goal Influenza vaccine. Due on due Goal CANDY BAR ATTENDANT exam. Due on due Goal RLP. Due on due Goal Tobacco cessation counseling completed Goal Dietary management education , guidance, and counseling completed Goal Depression screening. Due on due Goal RLP. Due on due Goal CANDY BAR ATTENDANT exam. Due on due Goal Influenza vaccine. Due on due Goal Tdap. Due on due Goal Tobacco cessation counseling completed Goal RLP. Due on due Goal CANDY BAR ATTENDANT exam. Due on due Goal H&P. Due on due Goal Influenza vaccine. Due on due Goal Tdap. Due on due Goal Dietary management education , guidance, and counseling completed Goal Tdap. Due on due Goal CANDY BAR ATTENDANT exam. Due on due Goal Influenza vaccine. Due on due Goal RLP. Due on due Goal H&P. Due on due Goal RLP. Due on due Goal Tdap. Due on due Goal CANDY BAR ATTENDANT exam. Due on due Goal H&P. Due on due Goal Tobacco cessation counseling completed Goal RLP. Due on due Goal Tdap. Due on due Goal Tobacco cessation counseling completed Goal H&P. Due on due Goal RLP. Due on due Goal CANDY BAR ATTENDANT exam. Due on due Goal Tdap. Due on due Goal Tobacco cessation counseling completed Goal H&P. Due on due Goal CANDY BAR ATTENDANT exam. Due on due Goal Tdap. Due on due Goal Td vaccine. Due on 17 due Goal Tobacco cessation counseling completed Goal H&P. Due on due Goal Td vaccine. Due on 16 due Goal Tdap. Due on due Goal Depression screening. Due on due Goal CANDY BAR ATTENDANT exam. Due on due Goal CANDY BAR ATTENDANT exam. Due on due Goal H&P. Due on due Goal Td vaccine. Due on 15 due Goal Depression screening. Due on due Goal Tdap. Due on due Referral Ordered: COLONOSCOPY AND BIOPSY [id number] Ordered: US EXAM, PELVIC, COMPLETE [id number] Ordered: Pathology (tissue specimen) [id number] Ordered: Referrals: Pain Medicine [id number] Referred To: Physical Therapy Ordered: Referrals: Physical Therapy [id number] Ordered: X-Ray Exam Of Knee 4 Or More Views Bilateral [id number] Ordered: X-RAY EXAM HIP UNI 2-3 VIEWS Left [id number] Ordered: X-Ray Exam Of Neck [id number] Ordered: MAMMOGRAM, SCREENING Appointment date/timeframe: 10/27/2020 [id number], [id number], VanessayBOOKED History Of Present Illness Encounter Date Complaint History Of Prese nt Illness annual exam Currently pregna nt: no. : 2. Parity: Term: 2. Livin. The client states using none and abstinence for control. Last LMP was 09/11/2025. Negative for dysmenorrhea and menorrhagia. Negative for: breast discharge. Pertinent negatives include anxiety and depression. The client does use tobacco. The client does drink alcohol. Additional information: Patient is here for annual exam. She is currently using vasectomy for BCM, but desires to restart Depo Provera to help control heavy painful menses. States she was on Depo for many years with success. Right now her menses are regular, but very heavy and painful. She would like a hysterectomy, but knows the Depo Provera will probably work to control the menses. Desires Mammogram and colonoscopy. Depo Patient is here for Depo Provera. Doing well and desires to continue. Does not desire a in the near future. abnormal pap smear Additional in formation: Patient is here for repeat pap and Depo Provera. Doing well with Depo and desires to continue at this time. contraception Discussed contra ception with client. The client is currently using Depo-Provera and abstinence. The client desires to remain on current control method. The client is not currently . The client does not desire to be in the next year. Menarche age (Menarche age was 10). Additional information: Patient is here for Depo Provera. Doing well and desires to continue. C/O soft tumor on back of right leg. Would like opinion. annual exam Currently pregna nt: no. : 2. Parity: Term: 2. Livin.Client is not contemplating . The client states using Depo-Provera and abstinence for control. Patient's menses is absent. Negative for dysmenorrhea and menorrhagia. Negative for: breast discharge, breast lump(s), breast pain and breast self exam.Negative for Hormone replacement therapy. The client does use tobacco. Tobacco cessation has been discussed. The client does drink alcohol. Additional information: Patient is here for annual exam. Has a history of abnormal paps, but her last one was normal. Has order for mammogram and plans to schedule her own appt. . contraception Discussed contra ception with client. The client is currently using Depo-Provera and abstinence. The client is not currently . Client denies dysmenorrhea and menorrhagia. Menarche age (Menarche age was 10), Menses (Menses is absent.). contraception Patient does not desire in the near future. Doing well with Depo Provera and desires to continue. contraception Patient does not desire in the near future. Doing well with Depo Provera and desires to continue. contraception Patient does not desire in the near future. Doing well with Depo Provera and desires to continue. Patient has lost 22lb by seeing a weight loss clinic and changing dietary and exercise habits. contraception Patient does not desire in the near future. Doing well with Depo Provera and desires to continue. abnormal pap smear Additional in formation: Patient is here for repeat pap and WENDY for Chlamydia. She desires to restart her Depo Provera. Her last injection was March 2022. She is no longer in a relationship and has been abstinent for several months. Colpo abnormal pap smear WENDY contraception Patient does not desire in the near future. Doing well with Depo Provera and desires to continue. annual exam Currently pregna nt: no. : 2. Parity: Term: 2. Livin. The patient states she uses Depo-Provera and condoms, male for control. Last LMP was 01/09/2022. Her menses is regular with light flow. Negative for dysmenorrhea and menorrhagia. Negative for: breast discharge, breast lump(s), breast pain and breast self exam. She does drink alcohol. Additional information: Patient is here for annual exam. Is currently sexually active and desires to restart Depo Provera. Denies problems with Depo Provera in the past. She was last sexually active the end on Nov and just got off her menses yesterday. Denies other CANDY BAR ATTENDANT problems at this time. . Musculoskeletal pain The problem is stable. The pain is sharp. Context: there is no injury. The pain is aggravated by movement and standing. The pain is relieved by rest. Associated symptoms include decreased mobility, difficulty initiating sleep, joint tenderness, limping, nocturnal pain, numbness and swelling. Pertinent negatives include bruising, crepitus, joint instability and locking. Hand Dominance: right. Review labs and x-rays Pt here t o review labs and x-rays of neck, knee and hip. Voices no problems or concerns at this time. Jackson. Weight gain/thyroid Pt here toda y with complaints of weight gain and wanting thyroid checked. Pt states she has had significant weight gain and wants thyroid labs Pt also has bilateral swelling in hands. Pt states the hand swelling has been going on a couple of years. Pt states she has a pinched nerve in elbow in R side. Pt states she has bad bilateral knees (L is worse than right) and has had issues with stairs. Pt states she fell recently and injured L hip. PT states she walks like a weirdo Pt states she cant have a normal stride. 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 Pt states her heart gets fluttery and gets her dizzy and short of breath. Pt states this is happening daily and seems to be getting worse and more frequent. Pt states when she was a teenager she had a holter monitor and was told she had irregular heart beat. No other issues or concernsTGsugar SCHMITZ ,alexandr was reviewed and agreed with MLP contraception Patient does not desire in the near future. Doing well with Depo Provera and desires to continue. annual exam Currently pregna nt: no. : 2. Parity: Term: 2. Livin. Patient is not contemplating . The patient states she uses condoms, male for control. Her menses is absent. Negative for dysmenorrhea and menorrhagia. Negative for: breast discharge, breast lump(s), breast pain and breast self exam. The patient does use tobacco. Tobacco cessation has been discussed. She does drink alcohol. Additional information: Patient is here for annual exam. Denies CANDY BAR ATTENDANT problems at this time. Has had a change in sexual partners over the last year. Is in the process of getting a divorce as her gave her an STD last year. Currently using Depo Provera for BC and desires to continue at this time. . Sinus symptoms (acute) Onset: 9 Days. The severity of the problem is moderate. The problem has worsened. Both sides are affected. Pertinent/initial symptoms include facial pain, facial pressure, sinus congestion, sinus pain and sinus pressure. Symptoms are associated with recent URI and smoke exposure. Symptoms are not associated with asthma, dental infection, environmental allergies or trauma. Context additional comments: smoker. Aggravating factors include smoke exposure. Symptoms are not aggravated by allergens or dry air. Symptoms are relieved by decongestants and OTC analgesics. Symptoms are not relieved by antihistamines. Associated symptoms include cough, headache, nasal drainage, nasal obstruction, postnasal drainage, rhinorrhea, sinus pressure and sore throat. Pertinent negatives include fever or otalgia. Additional information: PER TELE ENCOUNTER- SYMPTOMS STARTED 06/21. Friend and her daughter were also ill but recovered, and she cannot kick it. Asks about getting Depo inj. that is due. Denies CP. Beau MENDEZ NP. Tele-Health Patient c/o vagi nal odor without discharge or vaginal itching irritation. States she has had BV in the past and is pretty sure that what she has at this time. Took flagyl antibiotics in the past without complications. Denies change in sexual partners. Denies other CANDY BAR ATTENDANT problems at this time. contraception Patient does not desire in the near future. Doing well with Depo Provera and desires to continue. Discussed weight gain and patient assume it is partially due to depo and her sobriety. Test of cure contraception Patient does not desire in the near future. Doing well with Depo Provera and desires to continue. Also needs WENDY for chlamydia. States her is the only partner she has been with since getting our of correction, so knows she got chlamydia from him. Also Desires blood STD testing as has been having sex with men. Was tested for Hep C 1 year ago while in long-term and was told she was exposed to Hep C , but doesn't have it annual exam Currently pregna nt: no. : 2. Parity: Term: 2. Livin. Patient is not contemplating . The patient states she uses none for control. Last LMP was 07/10/2019. Her menses is regular with normal flow with a frequency of every 28 days. Negative for dysmenorrhea and menorrhagia. Negative for: breast discharge, breast lump(s), breast pain and breast self exam.Negative for Hormone replacement therapy. The patient does use tobacco. Tobacco cessation has been discussed. She does not drink alcohol. Additional information: Patient is here for annual exam. Currently having regular menses. 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 Desires to start Depo Provera. Has been abstinent/. Denies unprotected IC within the last two weeks. Has used Depo in the past without difficulty.. est care Pt here today to establish care and for some medications. Pt states she was just released from long-term and [facility]. PT states she is seeing Cecy from [place] and she referred her here. Pt was seeing Dr. Du in the past and has an apt with him on Aug 05. Pt states Dr. Du had her on a lot of different medications but when she went to long-term they put her on these 2 medications and she said these medications are amazing and only wants to be on them. PT takes 900mg of Trileptal at night. PT is also on 30mg Paxil. Pt states she was told that the Trileptal could be increased. Pt would like to see if the dose could be increased. Pt states she thinks her body is getting used to the dose and thinks an increase would help her more. Pt has no other issues or concerns. TGrodi LPNPt states she feels the best she has felt in a long time and her bipolar is balanced and she is sober contraception Patient does not desire in the near future. Doing well with Depo Provera and desires to continue. contraception Patient does not desire in the near future. Doing well with Depo Provera and desires to continue. annual exam Currently pregna nt: no. : 2. Parity: Term: 2. Livin. The patient states she uses none for control. Last LMP was 09/18/2017. The patient does use tobacco. Tobacco cessation has been discussed. She does not drink alcohol. Additional information: Here for annual exam and to restart Depo Provera. Received last depo at the hospital after of a child. Denies problems with Depo Provera. Denies otehr CANDY BAR ATTENDANT rpoblems. States she has had 2 LEEPS in the past when she was 18yr and 19yr. Paps are sometimes normal, but at times still abnormal. Last abnormal 2012.. oral naltrexone concerns Pt here today to discuss oral naltrexone. Pt states has not used since August 17. Pt states has tried multiple times to take a half oral nalrexone and was having burning skin, instant dry mouth, anxiety, and diarrhea and states symptoms subsided after 24 hours. Pt is unsure if she will be able to do vivitrol treatment. Pt has since seen [facility] and is on new meds which are helping with anxiety and bipolar. It should be noted that pt has had 2 uring drug screens at another facility that were both positive with Buprenorphine. Pt denies using any opioids. MingoMelvagiovanni is going to take 1/4 tab of oral naltrexone after talking with Dr. Chambers. Gem Vivitrol Patient here to start Vivitrol. Patient is currently out on mishra. Patient was a Heroin user. Patient last used 05/2017. Patient is very emotional today. Patient is needing something for anxiety. Patient is not allowed to see her baby. Patient is going to [facility] for counsiling. No other issues at this time. Ainsley Kim. Interview test annual exam Currently pregna nt: no. : 1. Parity: Term: 1. Livin. The patient states she uses none for control. Last LMP was 01/17/2015. The patient does use tobacco. She does drink alcohol. Additional information: Patient here today for annual exam. Denies concerns at this time. She would like to start Depo again as she was in long-term and just got out. test is negative. Depo consent signed. Return to clinic 04/20/15 @ 6:15PM. AINSLEY EMERY. Functional Status Date Functional Assessmen t No Information Instructions Date Instruction Additional Infor saurabhismael Desires colonoscopy referral is in chart Related to Colon Cancer screening Discussed heavy pain ful menses and her desires to restart Depo Provera to control the bleeding and will order pelvic sonogram for further evaluation to rule out fibroid and adenomyosis. Recommend Motrin 800mg PRN Related to Menorrhagia with regular cycle May continue Depo Pr overa. Encouraged calcium 1000mg QD. Recommend condoms for back up BC and to prevent STDs Related to Depo Provera injection Encouraged good diet janny intake, exercise and healthy lifestyle choices. Recommend daily multi-vitamin with Folic acid. Understands the need for non-violent partners in a consensual relationship. Patient does not desire a in the near future. Reviewed control options for prevention and desires to continue using vasectomy and Depo Provera Related to Encounter for gynecological examination (general) (routine) without abnormal findings Giving encouragement to exercise Related to Body mass index [BMI] 32.0-32.9, adult Dietary needs education Related to Body mass index [BMI] 32.0-32.9, adult May continue Depo Pr overa. Encouraged calcium 1000mg QD. Recommend condoms for back up BC and to prevent STDs Related to Encounter for surveillance of injectable contraceptive Giving encouragement to exercise Related to Body mass index [BMI] 33.0-33.9, adult Dietary needs education Related to Body mass index [BMI] 33.0-33.9, adult May continue Depo Pr overa. Encouraged calcium 1000mg QD. Recommend condoms for back up BC and to prevent STDs Related to Depo Provera injection Pap obtained and sen t to lab. Patient to call in 1 week for result Related to ASCUS on pap smear of cervix Giving encouragement to exercise Related to Body mass index [BMI] 32.0-32.9, adult Dietary needs education Related to Body mass index [BMI] 32.0-32.9, adult Small lipoma noted o n the back of her upper leg reassurance given. Encouraged to discuss with PCP and if they agree encouraged to monitor. Related to Lipoma of right lower extremity May continue Depo Pr overa. Encouraged calcium 1000mg QD. Recommend condoms for back up BC and to prevent STDs Related to Depo Provera injection Giving encouragement to exercise Related to Body mass index [BMI] 34.0-34.9, adult Dietary management e ducation, guidance, and counseling Related to Body mass index [BMI] 34.0-34.9, adult Cervical culutres ob tained and sent to lab. Patient to call in 1 week for result. Hx Chlamydia 04/16 Related to Screen for STD (sexually transmitted disease) May continue Depo Pr overa. Encouraged calcium 1000mg QD. Recommend condoms for back up BC and to prevent STDs Related to Depo Provera injection Encouraged monthly B SE. Recommend calcium 1000mg QD. Encouraged good dietary intake and exercise. Laboratory specimens sent to lab. Patient to call in 2 weeks if desires results.Discussed control options and patient desires to continue Depo Provera Related to Encounter for gynecological examination (general) (routine) without abnormal findings Giving encouragement to exercise Related to Body mass index [BMI] 34.0-34.9, adult Dietary management e ducation, guidance, and counseling Related to Body mass index [BMI] 34.0-34.9, adult May continue Depo Pr overa. Encouraged calcium 1000mg QD. Recommend condoms for back up BC and to prevent STDs Related to Depo Provera injection Dietary management e ducation, guidance, and counseling Related to Body mass index [BMI] 32.0-32.9, adult Giving encouragement to exercise Related to Body mass index [BMI] 32.0-32.9, adult May continue Depo Pr overa. Encouraged calcium 1000mg QD. Recommend condoms for back up BC and to prevent STDs Related to Depo Provera injection Giving encouragement to exercise Related to Body mass index [BMI] 32.0-32.9, adult Dietary management e ducation, guidance, and counseling Related to Body mass index [BMI] 32.0-32.9, adult May continue Depo Pr overa. Encouraged calcium 1000mg QD. Recommend condoms for back up BC and to prevent STDs Related to Depo Provera injection Pap obtained and sen t to lab. Patient to RTC 6 months for repeat pap. Patient states understanding. Related to Pap smear of cervix shows high risk HPV present May continue Depo Pr overa. Encouraged calcium 1000mg QD. Recommend condoms for back up BC and to prevent STDs Related to Depo Provera injection Cervical cultures se nt to lab. Patient to call in 1 week for results. Stressed importance of using condoms to prevent STDs Related to Chlamydia infection Dietary management e ducation, guidance, and counseling Related to Body mass index [BMI] 35.0-35.9, adult Giving encouragement to exercise Related to Body mass index [BMI] 35.0-35.9, adult Dietary management e ducation, guidance, and counseling Related to Body mass index [BMI] 34.0-34.9, adult Giving encouragement to exercise Related to Body mass index [BMI] 34.0-34.9, adult May continue Depo Pr overa. Encouraged calcium 1000mg QD. Recommend condoms for back up BC and to prevent STDs Related to Depo Provera injection Giving encouragement to exercise Related to Body mass index [BMI] 34.0-34.9, adult Dietary management e ducation, guidance, and counseling Related to Body mass index [BMI] 34.0-34.9, adult Cervical cultures se nt to lab. Patient to call in 1 week for results Related to - STD liefstyle code May restart Depo Pro vera. Encouraged calcium 1000mg QD. Recommend condoms for back up BC and to prevent STDs Related to Depo Provera injection Encouraged monthly B SE. Recommend calcium 1000mg QD. Encouraged good dietary intake and exercise. Laboratory specimens sent to lab. Patient to call in 2 weeks if desires results.Discussed control options and patient desires Depo Provera Related to Encounter for gynecological examination (general) (routine) without abnormal findings Giving encouragement to exercise Related to Body mass index [BMI] 34.0-34.9, adult Dietary management e ducation, guidance, and counseling Related to Body mass index [BMI] 34.0-34.9, adult Giving encouragement to exercise Related to Body mass index [BMI] 34.0-34.9, adult Dietary management e ducation, guidance, and counseling Related to Body mass index [BMI] 34.0-34.9, adult Giving encouragement to exercise Related to Body mass index [BMI] 35.0-35.9, adult Dietary management e ducation, guidance, and counseling Related to Body mass index [BMI] 35.0-35.9, adult Dietary management e ducation, guidance, and counseling Related to Body mass index [BMI] 36.0-36.9, adult Giving encouragement to exercise Related to Body mass index [BMI] 36.0-36.9, adult May continue Depo Pr overa. Encouraged calcium 1000mg QD. Recommend condoms for back up BC and to prevent STDs Related to Depo Provera injection Giving encouragement to exercise Related to Body mass index [BMI] 36.0-36.9, adult Dietary management e ducation, guidance, and counseling Related to Body mass index [BMI] 36.0-36.9, adult Cervical cultures se nt to lab. Patient to call in 1 week for results Related to - STD liefstyle code May continue Depo Pr overa. Encouraged calcium 1000mg QD. Recommend condoms for back up BC and to prevent STDs Related to Depo Provera injection Encouraged monthly B SE. Recommend calcium 1000mg QD. Encouraged good dietary intake and exercise. Laboratory specimens sent to lab. Patient to call in 2 weeks if desires results.Discussed control options and patient desires Depo Provera Related to Encounter for gynecological examination (general) (routine) without abnormal findings Giving encouragement to exercise Related to Body mass index [BMI] 35.0-35.9, adult Dietary management e ducation, guidance, and counseling Related to Body mass index [BMI] 35.0-35.9, adult Giving encouragement to exercise Related to Body mass index (BMI) 34.0-34.9, adult Dietary management e ducation, guidance, and counseling Related to Body mass index (BMI) 34.0-34.9, adult Discussed probable B V in detail with patient and Rx for flagyl 500mg BID for 7 days was sent to her pharmacy. Discussed proper hygiene measures. Patient denies change in sexual partners. If s/s persist after taking the medication then would recommend seeing patient in office. Due to Covid 19 informed patient I'm not sure when that will occur and patient states understanding. Related to BV (bacterial vaginosis) May continue Depo Pr overa. Encouraged calcium 1000mg QD. Recommend condoms for back up BC and to prevent STDs Related to Depo Provera injection Giving encouragement to exercise Related to Body mass index (BMI) 32.0-32.9, adult Dietary management e ducation, guidance, and counseling Related to Body mass index (BMI) 32.0-32.9, adult May continue Depo Pr overa. Encouraged calcium 1000mg QD. Recommend condoms for back up BC and to prevent STDs Related to Depo Provera injection IV, RPR Hep B and He p C drawn today and sent to lab. Related to - HIV Cervical cultures se nt to lab. Patient to call in 1 week for results Related to - STD liefstyle code Giving encouragement to exercise Related to Body mass index (BMI) 30.0-30.9, adult Dietary management e ducation, guidance, and counseling Related to Body mass index (BMI) 30.0-30.9, adult May continue Depo Pr overa. Encouraged calcium 1000mg QD. Recommend condoms for back up BC and to prevent STDs Related to Depo Provera injection Cervical cultures se nt to lab. Patient to call in 1 week for results Related to - STD liefstyle code Encouraged monthly B SE. Recommend calcium 1000mg QD. Encouraged good dietary intake and exercise. Laboratory specimens sent to lab. 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 Encouraged calcium 1000mg QD. Recommend condoms for back up BC and to prevent STDs Related to Depo Provera injection Giving encouragement to exercise Related to Body mass index (BMI) 30.0-30.9, adult Dietary management e ducation, guidance, and counseling Related to Body mass index (BMI) 30.0-30.9, adult May continue Depo Pr overa. Encouraged calcium 1000mg QD. Recommend condoms for back up BC and to prevent STDs Related to Depo Provera injection Cervical cultures se nt to lab. Patient to call in 1 week for results Related to - STD liefstyle code May continue Depo Pr overa. Encouraged calcium 1000mg QD. Recommend condoms for back up BC and to prevent STDs Related to Depo Provera injection Encouraged monthly B SE. Recommend calcium 1000mg QD. Encouraged good dietary intake and exercise. Laboratory specimens sent to lab. Patient to call in 2 weeks if desires results. 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) w/o abn findings travel domestic violence seat belt use childbirth classes / hospital facilities signs and symptoms of la bor abnormal lab values influenza vaccine selecting a care provide r smoking counseling domestic violence family pl anning / tubal sterilization tobacco (ask, advise , assess, assist and arrange) alcohol illicit / recreational drugs use of any medicatio ns (including supplements, vitamins, herbs, OTC drugs) smoking counseling HIV and other routine t ests risk factors identif ied by history anticipated course of c are nutrition and weight gain counseling, special diet toxoplasmosis precau tions (cats / raw meat) sexual activity exercise indications for ultrasound influenza vaccine environmental / work hazards Encouraged monthly B SE. Recommend calcium 1000mg QD. Encouraged good dietary intake and exercise. Pap and cervical cultures sent to lab. Patient to call in 2 weeks if desires results. Related to Routine gynecological examination May restart Depo Pro vera. Encouraged calcium 1000mg QD. Recommend condoms for back up BC and to prevent STDs Related to Other specified contraceptive management Oct-10-2013 Advise to use condoms at all lexi es Assessments Type Assessment Date No Information Patient Care Teams Name Effective Dates (start - stop) Status Members No Information
[2025-11-15 14:02] VITALS: BP 128/83; PULSE 87; TEMP 37.4; O2SAT 99; BMI 31.0
--- NOTE | 2025-11-15 14:06 | XR_ITS ---
[facility] [place] [facility] [id number] Patient Name: YENY AVILES MRN: [id number] date: 1980 Sex: F Assigned Patient Location: ER Current Patient Location: ED.MAIN Accession/Order Number: [id number] Exam Date: 11/15/2025 14:20 Report Date: 11/15/2025 15:00 At the request of: GABINO ALEJANDRO MD Procedure: XR hand LT min 3V LEFT HAND - 3 views REASON FOR EXAM: Fall. Pain and swelling first metacarpal COMPARISON: None FINDINGS: Soft tissue swelling. No acute bony process is seen. Joint spaces appear maintained. XR/XR hand LT min 3V IMPRESSION: SOFT TISSUE SWELLING WITHOUT ACUTE BONY PROCESS. Impression dictated by: Didier Herring Jr., D.OTamir 11/15/2025 3:00 PM Dictation Location: [facility] [facility]LOCATED WITHIN [facility] Electronically authenticated by: [id number] Y Date: 11/15/2025 15:00
--- NOTE | 2025-11-15 14:14 | PC.NURSE ---
pt has L hand wrapped, fingers to left hand have swelling, imaging ordered
--- OUTSIDE RECORDS SUMMARY | 2025-11-15 14:30 | XMS_ITS | Patient Health Record ---
Author Organization [employer] [facility] Address [address] [place] [address] Care Team Providers Care Esl Teacher Name Role Phone Kan Romo Primary Care Provider Kamila Adkins Unavailable [phone] Allergies No Known Allergies Reason For Referral No Information Medications Medication SIG (Take, Route, Frequency, Duration) Notes Start Date End Date Status hydrOXYzine HCl 25 MG Tablet TAKE 1-2 TA BLETS BY MOUTH WHEN NEEDED ONCE A DAY 30 DAYS; Duration: 90 days ActiveLaMICtal 100 MG Tablet1 tablet Orally; Duration: 30 day(s)Not-Taking/PRN Gabapentin 400 MG CapsuleTAKE 1 CAPSULE BY MOUTH THREE TIMES A DAY; Duration: 30 ActiveJardiance 10 MG TabletTAKE 1 TABLET BY MOUTH EVERY DAY; Duration: 30 Not-Taking/PRNAtomoxetine HCl 40 MG CapsuleTAKE 1 CAPSULE BY MOUTH EVERY DAY IN THE MORNING FOR 30 DAYS; Duration: 90Not-Taking/PRNlamoTRIgine 100 MG TabletTAKE 1 TABLET BY MOUTH EVERY DAY; Duration: 90ActiveAtomoxetine HCl 40 MG CapsuleTAKE 1 CAPSULE BY MOUTH EVERY DAY; Duration: 30 daysActiveAtorvastatin Calcium 20 MG TabletTAKE 1 TABLET BY MOUTH EVERY DAY; Duration: 90ActivePhentermine HCl 37.5 MG Capsule1 capsule Orally Once a dayActiveTrulicity 0.75 MG/0.5ML Solution Pen-injectorINJECT 0.5 ML SUBCUTANEOUSLY ONCE A WEEK; Duration: 28Active OXcarbazepine 300 MG TabletTAKE 2 TABLETS BY MOUTH TWICE A DAY FOR 30 DAYS 30 DAY(S); Duration: 90ActivePARoxetine HCl 20 MG TabletTAKE 1 TABLET BY MOUTH EVERY DAY; Duration: 90 daysActive Social History Tobacco Use: Social History Observation Description Date Details (start date - stop date) Current Smoker NA - NA Social History GeneralSocial InfoQuestionAnswerNotesTransition of Care:ER/UC/hospital since last office visit?Yes, [facility] Depression Screening (PHQ-9):Little interest or pleasure in doing thingsNot at allFeeling down, depressed, or hopelessNot at allTrouble falling or staying asleep, or sleeping too muchNot at allFeeling tired or having little energyNot at allPoor appetite or overeatingNot at allFeeling bad about yourself-or that you are a failure or have let yourself or your family downNot at allTrouble concentrating on things, such as reading the newspaper or watching televisionNot at allMoving or speaking so slowly that other people could have noticed. Or the opposite being so fidgetyor restless that you have been moving around a lot more than usualNot at allThoughts that you would be better off , or of hurting yourself in some wayNot at allTotal Sxeqp8Wnwfbcvvl abuse/mental health issues of patient/familyPatient -Caffeine UseAbility to understand healthcare/treatment Patient:Cora Screen:Are you a:current smoker? How often do you smoke cigarettes?every day? How many cigarettes a day do you smoke?6-10Social/Support Concerns:Patient:NoAlcohol Screening:Did you have a drink containing alcohol in the past year?IvRknbah6GitjwotqfxaxovDshzfkxgZvlclwptg affecting health Poor/Risky Behaviors:Oral Health-, Second Hand Smoke-Communication Barrier: Language Barrier?:NoFood Insecurity ScreeningSocial InfoQuestionAnswerNotesFood Insecurity ScreeningWithin the last 12 months, have you been worried about your food running out before you received money to buy more?NoWithin the last 12 months, did the food you buy not last, and you didn't have money to buy more?No Within the last 12 months, have you had any difficulty affording to eat balanced meals including all food groups (fruits, vegetables, protein, and whole grains)? No Problems Problem Type SNOMED Code ICD Code Onset Dates Problem Status W/U Status Risk Notes Problem Obesity due to exces s calories (682806239) Other obesity due to excess calories (E66.09) ActiveconfirmedProblemMetabolic syndrome (462227416)Metabolic syndrome (E88.81) ActiveconfirmedProblemWheezing (57936619)Wheezing (R06.2)ActiveconfirmedProblem Anxiety (19333358)Anxiety (F41.9)ActiveconfirmedProblemDepression (535361396) Depression (F32.9)ActiveconfirmedProblemBipolar 1 disorder (980250039)Bipolar 1 disorder (F31.9)ActiveconfirmedProblemDyslipidemia (780560849)Dyslipidemia (E78.5)ActiveconfirmedProblemHyperlipidaemia (64941591)Hyperlipidemia, unspecified hyperlipidemia type (E78.5)ActiveconfirmedProblemPosttraumatic stress disorder (92731358)PTSD (post-traumatic stress disorder) (F43.10)Active confirmedProblemHyperglycemia due to type 2 diabetes mellitus (454599995589933) Type 2 diabetes mellitus with hyperglycemia, without long-term current use of insulin (E11.65)ActiveconfirmedProblemBilateral carpal tunnel syndrome (99241211837834985)Bilateral carpal tunnel syndrome (G56.03)Activeconfirmed ProblemBody mass index 30.00 to 34.99 (556156229085995)BMI 34.0-34.9,adult (Z68.34)ActiveconfirmedProblemBipolar 2 disorder (22098862)Bipolar 2 disorder (F31.81)ActiveconfirmedProblemSkin sensation disturbance (43607080)Paresthesia of hand, bilateral (R20.2)ActiveconfirmedProblemInattention (07306362) Inattention (R41.840)ActiveconfirmedProblemInsulin resistance (754847497)Insulin resistance (E88.81)ActiveconfirmedProblemLesion of ulnar nerve (806116078)Ulnar neuropathy at elbow, 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)ActiveconfirmedProblem Insulin resistance syndrome (315582752)Insulin resistance syndrome (E88.81) Activeconfirmed Plan Of Treatment No Information Insurance Providers Payer Name Payer Address Payer Phone Subscriber Number Group Number Insured Name Patient Relationship to Insured Coverage Start Date Coverage End Date [facility] [employer] [place] Medicaid [address] [place] [address] [id number] AVILES, SHELLYSelf - patient is the [id number]/27/2022 [employer] [facility] CareSourcePO [address] [place] [id number], SHELLYSelf - patient is the yysjwrv2912/27/2022[employer] 12/26/22[address] [place] [id number], SHELLYSelf - patient is the [id number] [facility] [employer]-ter[employer] 12/26/22[address] [place] [id number], SHELLYSelf - patient is the [id number] [employer] 12/26/22[address] [place] [id number], SHELLYSelf - patient is the [id number] MEDICAID [facility] after [employer] 12/26/22[address] [place] [id number], SHELLYSelf - patient is the yynjexp58areSource [place] MedicaidPO [address] [place] [id number], SHELLYSelf - patient is the rajpghc5308/26/2022[employer] CareSourcePO [address] [place] [id number], SHELLYSelf - patient is the [id number]/26/2021 Medical (General) History Medical History History ICD Code BILAT NERVE DAMAGE IN ARMS CHILDBIRTHBipolarDepressionAnxietyPTSDCOVID-19 12/02/2021urgical History Surgery Date(Month/Year) T & A BROKEN ANKLE REPAIRHospitalization History Reason Date(Month/Year) PNEUMONIA/SEPSIS 07/2022 Child BROKEN [id number]
--- NOTE | 2025-11-15 14:33 | PC.NURSE ---
left hand unwrapped, left hand and fingers swelling. strong radial pulse to left wrist. hand elevated with pillow and ice pack in place.
--- NOTE | 2025-11-15 15:05 | ED.UPPEXIN1 ---
HPI HPI - Extremity Injury (Upper) General Chief Complaint: Extremity Injury, Upper Stated Complaint: FALL; L HAND PAIN Time Seen by Provider: 11/15/25 14:56 Source: patient Mode of arrival: walk-in History of Present Illness HPI narrative: Patient is a 45-year-old female presents to the ER with concerns of left hand pain attention to the base of the thumb. Patient states she was walking on Sunday when she tripped over a blanket and fell catching her thumb to the side. She is right-hand dominant. Pain has been moderate to severe at the base of her thumb since, improved with rest but worse with activity. Patient notes swelling and some dependent bruising. Her main concern if there is a fracture. She denies any head or neck injury. She denies any paresthesias. States pain is present to touch and movement of the thumb. Patient appears in no distress otherwise and did not take any Tylenol or Motrin prior to arrival. Patient was given ice pack on arrival. MD complaint: injury to: Reports left and hand Other Extremity Injury: Left: hand Hand dominance: right Place: Reports home Severity: severe Exacerbating factors: Reports none Context: Reports fall Associated symptoms: Reports denies other symptoms Related Data Previous Rx's ?Medication ?Instructions ?Recorded amoxicillin 500 mg capsule 500 mg PO TID 10 days #30 caps 02/20/24 lhlmrwzqjirbbfu-gnugizbjlbbwtwh-IV 10 ml PO Q6H PRN cold symptoms 02/20/24 2 mg-30 mg-10 mg/5 mL oral syrup #200 mL (Bromfed DM) ondansetron 4 mg disintegrating 4 mg PO Q6H PRN nausea and 02/20/24 tablet vomiting #12 tabs acetaminophen 650 mg 650 mg PO Q8H PRN pain #20 tabs 06/06/25 tablet,extended release (Tylenol 8 Hour) diclofenac sodium 75 mg 75 mg PO BID PRN pain #20 tabs 06/06/25 tablet,delayed release tramadol 50 mg tablet 50 mg PO BID PRN pain #6 tabs 06/06/25 diclofenac sodium 75 mg 75 mg PO BID PRN pain 14 days #28 11/15/25 tablet,delayed release tabs Allergies Allergy/AdvReac Type Severity Reaction Status Date / Time No Known Drug Allergies Allergy Verified 02/20/24 12:59 Opioid HPI Opioid Management Most Recent Pain and Opioid Data: Last Pain Scale 10 Today, 15:16 Last MAR Pain Assessment Today, 15:16 Review of Systems ROS Constitutional Denies: fever or chills Ears, nose, mouth, and throat Denies: neck pain Cardiovascular Denies: chest pain Respiratory Denies: shortness of breath Gastrointestinal Denies: abdominal pain Musculoskeletal Reports: extremity pain (Left hand, base of thumb.); Denies: back pain or neck pain Integumentary/Breast Denies: rash Neurological Denies: headache PFSH PFSH Social History Little interest or pleasure in doing things: not at all Feeling down, depressed, or hopeless: not at all Exam Narrative Exam Narrative: Nurse's notes and vital signs reviewed and patient is not hypoxic. General: The patient appears well and in no apparent distress. Patient is resting comfortably in cart. Patient is guarding her left thumb during exam. Skin: Warm, dry, no pallor noted. No evidence of rash but there is some trace bruising noted at the base of the thumb. Head: Normocephalic, atraumatic Neck: Supple, no midline neck tenderness., Painless range of motion. Ears, nose, mouth, and throat: TMs are clear, normal light reflex, oral mucosa is moist, no posterior oropharynx erythema or hypertrophy, uvula is midline Cardiovascular: Regular rate and rhythm Respiratory: Patient is in no distress, no accessory muscle use, lungs are clear to auscultation, no wheezing, rales, or rhonchi. Chest wall: No tenderness Musculoskeletal: Left hand able to open and close fingers without difficulty. Limited range of motion of thumb secondary to pain and swelling at the MCP joint. She denies pain to the distal phalanx there is no nail injury the IP joint is nontender. She specifically denies any pain at the anatomical snuffbox or radial aspect of her wrist. Radial pulses 2+. She has difficulty making the A-OK sign secondary to pain at the thumb. I am unable to stress any type of strength as she notes severe pain with movement however she is able to demonstrate some gentle flexion and extension at the IP joint without evidence of obvious tendon disruption. She has no pain along the first dorsal compartment into the wrist. Wrist joint is nontender. Neurological: Alert and oriented ?4 Psychiatric: Cooperative Constitutional Vital Signs, click to edit/add: Last Vital Signs Temp 99.4 F 11/15/25 14:02 Pulse 87 11/15/25 15:27 Resp 16 11/15/25 15:27 BP 136/83 11/15/25 15:27 Pulse Ox 99 11/15/25 15:27 O2 Del Method Room Air 11/15/25 15:27 Course Vital Signs Vital signs: Vital Signs Temperature 99.4 F 11/15/25 14:02 Pulse Rate 87 11/15/25 14:02 Respiratory Rate 20 11/15/25 14:02 Blood Pressure 128/83 11/15/25 14:02 Pulse Oximetry 99 11/15/25 14:02 Oxygen Delivery Method Room Air 11/15/25 14:02 Temperature 99.4 F 11/15/25 14:02 Pulse Rate 87 11/15/25 15:27 Respiratory Rate 16 11/15/25 15:27 Blood Pressure 136/83 11/15/25 15:27 Pulse Oximetry 99 11/15/25 15:27 Oxygen Delivery Method Room Air 11/15/25 15:27 MDM - Extremity Injury (Upper) MDM Narrative Medical decision making narrative: Patient given ice pack on arrival, Tylenol Motrin was ordered for pain. X-ray performed of the left hand shows no acute fracture but there is some soft tissue swelling. Patient appears mostly concerned about the possibility of fracture however I did convey in layman's terms that I am more concerned about a possible ligament injury potentially the UCL involving her thumb which relates to function. We discussed immobilization with a thumb spica splint which was applied here today. She is encouraged to take Motrin and ice and elevate, no use of the left hand until follow-up with orthopedics. Patient may require further imaging such as an MRI for further diagnosis pending reevaluation and this was communicated at bedside in layman's terms and the need and importance of follow-up to ensure thumb function. There is no signs or symptoms of infection. The patient states she has seen orthopedics in the past for ankle fractures and for her last fracture did not follow-up. I discussed that the thumb will require follow-up to orthopedics even though there is no obvious fracture on her x-ray. And the importance of doing so was related to thoroughly. The patient is to followup with primary care physician/ orthopedics in next 1-3 days or to return to the emergency department should any of the signs or symptoms worsen or new symptoms develop. Patient had questions answered. The patient agrees with the following Diagnosis and Treatment plan and the patient will be discharged home. Imaging Data left hand xray: Radiologist's impression: ITS Impressions Hand X-Ray 11/15/25 14:06 IMPRESSION: SOFT TISSUE SWELLING WITHOUT ACUTE BONY PROCESS. Impression dictated by: Didier Herring Jr., D.O. 11/15/2025 3:00 PM Dictation Location: [facility] Electronically authenticated by: [id number] Y Date: 11/15/2025 15:00 Discharge Plan Discharge Chief Complaint: Extremity Injury, Upper Clinical Impression: Hand pain, left, Left thumb sprain, Sprain of ulnar collateral ligament of metacarpophalangeal (MCP) joint of left thumb Patient Disposition: Home, Self-Care Time of Disposition Decision: 15:13 Condition: Good Prescriptions / Home Meds: New diclofenac sodium 75 mg tablet,delayed release (DR/EC) 75 mg PO BID PRN (Reason: pain) 14 Days Qty: 28 0RF Rx Instructions: take with food No Action amoxicillin 500 mg capsule 500 mg PO TID 10 Days Qty: 30 0RF [id number]-[id number] [Bromfed DM] 2-30-10 mg/5 mL syrup 10 ml PO Q6H PRN (Reason: cold symptoms) Qty: 200 0RF ondansetron 4 mg tablet,disintegrating 4 mg PO Q6H PRN (Reason: nausea and vomiting) Qty: 12 0RF tramadol 50 mg tablet 50 mg PO BID PRN (Reason: pain) Qty: 6 0RF acetaminophen [Tylenol 8 Hour] 650 mg tablet extended release 650 mg PO Q8H PRN (Reason: pain) Qty: 20 0RF diclofenac sodium 75 mg tablet,delayed release (DR/EC) 75 mg PO BID PRN (Reason: pain) Qty: 20 0RF Print Language: Irish Instructions: Sprain (ED) Referrals: [facility] [Primary Care Provider] - 1 week LATANYA SÁNCHEZ [Physician, Family Practice] - As soon as possible Discharge Date/Time: 11/15/25 15:27 Procedures ED Ortho Splinting/Casting Orthopedic Splinting/Casting Injury #1: Additional comments: Splint Application: The patient's multiple bracelets and ring were removed by the patient with minimal assistance by myself and placed into her purse. The patient was placed in a thumb spica splint with Orthoglass splint material, 3 inch. The patient had 2 rolls of the web roll applied to the affected site. Patient then had the splint material placed with felt side against web roll and skin. The patient had the splint secured in place with abhijeet bandage. The patient was neurovascularly intact post application of the splint. The patient would not tolerate a Non-formfitting Velcro thumb spica brace at this time with swelling and sensitivity.
[2025-11-15] MEDS: ACETAMINOPHEN 500 MG TABLET 1000 MG PO (15:16)
[2025-11-15] MEDS: IBUPROFEN 600 MG TABLET PO (15:17)
[2025-11-15 15:27] VITALS: BP 136/83; PULSE 87; O2SAT 99
== END 2025-11-15 15:27 | disposition home or self-care (01) ==
PROVIDERS: Emergency Provider Emergency Medicine
DX: S63.602A Unspecified sprain of left thumb, initial encounter (principal); M79.642 Pain in left hand; S63.642A Sprain of metacarpophalangeal joint of left thumb, initial encounter; W01.0XXA Fall on same level from slipping, tripping and stumbling without subsequent striking against object, initial encounter
CPT/HCPCS: 29125; 73130; 99283